=== PATIENT | male | born 2000 | race Caucasian/White ===

== ENCOUNTER 2024-02-22 08:41 | Emergency (ER) | payer OTHER, SELFPAY ==
[2024-02-22 08:52] VITALS: BP 127/91; PULSE 92; RESP 16; TEMP 36.6; O2SAT 99
--- NOTE | 2024-02-22 08:58 | ED.EYEPROB ---
HPI - Eye Problem General Chief complaint: Eye Problems Stated complaint: Eye Problems Time Seen by Provider: 02/22/24 08:59 Source: patient, RN notes reviewed and old records reviewed Mode of arrival: ambulatory Limitations: no limitations History of Present Illness HPI Narrative: 23 year old male presents to [facility] with complaints of accidentally spraying some off bug spray in his right eye on Friday,he called poison control and he was told to flush his eye which he did and it resolved his symptoms. On Friday he started having irritation to his left eye with burning sensation so he flushed his left eye out but continues to have feelings of irritation to his left eye and some discomfort. no visual changes reported. MD chief complaint: other (irritation and discomfort to left eye) Onset (ago): day(s) (day 2 of symptoms) Duration: constant Location: left eye Severity scale (1-10): 3 Treatments Prior to Arrival: irrigated eye Related Data Allergies Allergy/AdvReac Type Severity Reaction Status Date / Time No Known Allergies Allergy Mild Verified 02/22/24 08:49 Review of Systems Review of Systems: CONSTITUTIONAL: Denies fever, chills, or sweats. EYES: Denies visual changes. Reports redness,, irritation, watering to his left eye, denies mucoid drainage ENT: Denies rhinorrhea, congestion, sore throat, or otalgia. CARDIOVASCULAR: Denies chest pain, palpitations, or edema. RESPIRATORY: Denies cough or dyspnea. SKIN: Denies rash or itching. NEUROLOGIC: Denies headache All systems reviewed & are unremarkable except as noted in HPI and below PMFSH Past Medical History Medical History (Updated 02/23/24 @ 09:56 by Karolyn Ramírez NP) IBS (irritable bowel syndrome) Injury of conjunctiva and corneal abrasion of left eye w/o FB Social History Social History (Updated 02/23/24 @ 09:52 by Karolyn Ramírez NP) Smoking status: Never smoker Alcohol intake: current Alcohol use details: social Substance use type: does not use Gender identity (if verbalized by the patient): Male Comments At time of signature, agree with nursing past medical, surgical, social and family history. There is no relevant family history pertinent to the presenting complaint Exam Narrative: GENERAL: Well-appearing, well-nourished, and in no acute distress. HEAD: Normocephalic, atraumatic. EYES: PERRLA and EOMI. Upper and lower eyelids unremarkable left eye. No periorbital cellulitis noted. Sclera with minimal redness, conjunctiva clear, watery, denies sharp pain to eye or any visual changes. ENT: Nares clear, no rhinorrhea or epistaxis. Mucous membranes m NECK: Supple. no lymphadenopathy CHEST: Clear to auscultation. No respiratory distress.SAO2 99% on room air HEART: Regular rate and rhythm. No murmur heard. Normal peripheral pulses. SKIN: Warm, dry, no rash. NEURO: No focal deficits. Alert and oriented x3. Course Course Emergency Course: Patient is aware of diagnosis, understands and agrees to treatment plan. Anticipatory guidance given. Patient agrees to follow-up as directed and is aware of reasons to seek care at the emergency department. Portions of this record may have been created with voice recognition software Level of Care: Express Care Visit Vital Signs Vital signs: Vital Signs Temperature 36.6 C 02/22/24 08:52 Pulse Rate 92 02/22/24 08:52 Respiratory Rate 16 02/22/24 08:52 Blood Pressure 127/91 H 02/22/24 08:52 Pulse Oximetry 99 02/22/24 08:52 Temperature 36.6 C 02/22/24 08:52 Pulse Rate 92 02/22/24 08:52 Respiratory Rate 16 02/22/24 08:52 Blood Pressure 127/91 H 02/22/24 08:52 Pulse Oximetry 99 02/22/24 08:52 Reviewed MDM - Eye Problem MDM Narrative Medical decision making narrative: Consideration of the following conditions may be warranted for the presenting problem, they are not final diagnoses: Bacterial conjunctivitis, allergic conjunctivitis, viral conjun
== END 2024-02-22 09:19 | disposition home or self-care (01) ==
PROVIDERS: Emergency Provider Registered Nurse
DX: H10.9 Unspecified conjunctivitis (principal)
CPT/HCPCS: 99213; G0463